=== PATIENT | female | born 1965 | race Caucasian/White ===

== ENCOUNTER → 2016-12-28 | Outpatient (CLI) | payer OTHER | LOC: US 07:03 → RAD 08:30 | DX: R10.0 Acute abdomen (principal) | CPT/HCPCS: 74246; 76700 ==

== ENCOUNTER 2020-09-30 14:55 | Observation (INO) | payer OTHER ==
[~2020-09-30] VITALS: Ht 165.1 cm; Wt 99.3 kg
[~2020-09-30 14:55] MED LIST: CEPHALEXIN500 MG PO; FLEXERIL 10 MG10 MG PO; FLOMAX0.4 MG PO; KEFLEX CAP 500500 MG PO; NORCO 5-325 TA1 EACH PO; TORADOL 10 MG T10 MG PO; ZOFRAN ODT 4 MG4 MG PO; ZOFRAN ODT4 MG PO
[2020-09-30 17:34] LABS: HEMOGLOBIN 15.6 gm/dl (12.3-15.3); RED BLOOD COUNT 5.21 M/UL (4.00-5.10); WHITE BLOOD COUNT 9.4 K/UL (4.5-11.0)
[2020-09-30 17:58] LABS: BUN/CREATININE RATIO 14 (0-10)
[2020-10-01 05:34] LABS: HEMOGLOBIN 14.1 gm/dl (12.3-15.3); RED BLOOD COUNT 4.73 M/UL (4.00-5.10); WHITE BLOOD COUNT 7.3 K/UL (4.5-11.0)
[2020-10-01 06:01] LABS: BUN/CREATININE RATIO 16 (0-10)
[2020-10-01] MEDS ORDERED: ALLEGRA ALLERG180 MG PO (10:40)
[2020-10-01] MEDS ORDERED: NORVASC5 MG PO (10:41)
[2020-10-01] MEDS ORDERED: CATAPRES 0.1MG0.1 MG PO (10:41)
[2020-10-01] MEDS ORDERED: TOPROL XL100 MG PO (10:41)
[2020-10-01] MEDS ORDERED: ASPIRIN 325MG325 MG PO (10:42)
[2020-10-01] MEDS ORDERED: MULTI-VITAMIN1 EACH PO (10:43)
[2020-10-01] MEDS ORDERED: FUROSEMIDE20 MG PO (10:44)
[2020-10-01] MEDS ORDERED: LIPITOR10 MG PO (11:01)
[2020-10-02 06:21] LABS: HEMOGLOBIN 14.6 gm/dl (12.3-15.3); RED BLOOD COUNT 4.9 M/UL (4.00-5.10); WHITE BLOOD COUNT 6.5 K/UL (4.5-11.0)
[2020-10-02 06:57] LABS: BUN/CREATININE RATIO 14 (0-10)
[2020-10-02] MEDS ORDERED: LIPITOR10 MG PO (18:20)
[2020-10-02] MEDS ORDERED: FUROSEMIDE20 MG PO (18:20)
[2020-10-02] MEDS ORDERED: ASPIRIN 325MG325 MG PO (18:20)
[2020-10-02] MEDS ORDERED: LISINOPRIL10 MG PO (18:20)
== END 2020-10-02 19:20 | disposition home or self-care (01) ==
LOC: ER1 14:55 → CDU 21:13 → MED SURG 4 10-01 15:59
PROVIDERS: Internal Medicine; Physician Assistant Medical; ADMIT Internal Medicine
DX: R07.89 Other chest pain (principal); S30.0XXA Contusion of lower back and pelvis, initial encounter; I10 Essential (primary) hypertension; I25.2 Old myocardial infarction; E78.5 Hyperlipidemia, unspecified; R60.9 Edema, unspecified; E66.9 Obesity, unspecified; Z68.36 Body mass index [BMI] 36.0-36.9, adult; Z88.5 Allergy status to narcotic agent; Z91.030 Bee allergy status; Z79.82 Long term (current) use of aspirin; Z79.899 Other long term (current) drug therapy; Z87.442 Personal history of urinary calculi; Z20.822 Contact with and (suspected) exposure to COVID-19; X58.XXXA Exposure to other specified factors, initial encounter
CPT/HCPCS: ECHO; 36415; 71045; 78452; 80048; 80053; 80061; 81001; 82550; 82553; 83036; 83735; 83874; 83880; 84100; 84439; 84443; 84484; 84550; 85025; 93005; 93017; 93306; 96372; 99285; A9502; G0378; J1650; J2785; U0002

== ENCOUNTER → 2020-12-30 | Outpatient (CLI) | payer OTHER ==
[~2020-12-30] MED LIST changes: +ALLEGRA ALLERG180 MG PO; +ASPIRIN 325MG325 MG PO; +CATAPRES 0.1MG0.1 MG PO; +FUROSEMIDE20 MG PO; +LIPITOR10 MG PO; +LISINOPRIL10 MG PO; +MULTI-VITAMIN1 EACH PO; +NORVASC5 MG PO; +TOPROL XL100 MG PO
== END ==
LOC: US 08:30
DX: R10.11 Right upper quadrant pain (principal); K76.0 Fatty (change of) liver, not elsewhere classified
CPT/HCPCS: 76705

== ENCOUNTER → 2020-12-31 | Outpatient (CLI) | payer OTHER | LOC: KOH-I 10:33 | DX: R05 Cough (principal) | CPT/HCPCS: 71046 ==

== ENCOUNTER → 2021-02-09 | Outpatient (CLI) | payer OTHER | LOC: US 14:06 | DX: N64.4 Mastodynia (principal) | CPT/HCPCS: 76641-LT ==

== ENCOUNTER → 2021-04-16 | Outpatient (CLI) | payer OTHER | LOC: RAD 08:32 | DX: R11.0 Nausea (principal); N20.0 Calculus of kidney; K46.9 Unspecified abdominal hernia without obstruction or gangrene | CPT/HCPCS: 74246; 74248 ==

== ENCOUNTER → 2021-04-29 | Outpatient (CLI) | payer OTHER | LOC: HEART 5 11:22 | DX: R05.9 Cough, unspecified (principal) | CPT/HCPCS: 94060; 94729; 95012 ==

== ENCOUNTER → 2021-06-02 | Outpatient (CLI) | payer OTHER | LOC: KOH-I 10:00 → CT 11:30 → KOH-I 06-09 11:00 | DX: J84.9 Interstitial pulmonary disease, unspecified (principal) | CPT/HCPCS: 71250 ==

== ENCOUNTER → 2021-11-25 | Outpatient (CLI) | payer OTHER | LOC: ECHO 09:39 | DX: R60.9 Edema, unspecified (principal) | CPT/HCPCS: ECHO; 93306 ==